=== PATIENT | female | born 1995 | race Asian ===

== ENCOUNTER 2017-08-09 22:29 | Emergency (ER) | payer OTHER ==
[2017-08-09 23:02] VITALS: BP 133/83
== END 2017-08-10 02:14 | disposition left against medical advice (07) ==
LOC: ED 22:29
DX: Z53.21 Procedure and treatment not carried out due to patient leaving prior to being seen by health care provider (principal)

== ENCOUNTER 2018-03-16 20:32 | Emergency (ER) | payer OTHER ==
[~2018-03-16] VITALS: Ht 154.9 cm; Wt 57.1 kg
[2018-03-16 20:43] VITALS: Ht 154.9 cm; Wt 57.1 kg
[2018-03-16 22:13] VITALS: BP 113/65
== END 2018-03-16 22:13 | disposition home or self-care (01) ==
LOC: ED 20:32
DX: S16.1XXA Strain of muscle, fascia and tendon at neck level, initial encounter (principal); V89.2XXA Person injured in unspecified motor-vehicle accident, traffic, initial encounter; Y93.89 Activity, other specified; Y92.89 Other specified places as the place of occurrence of the external cause; Y99.8 Other external cause status
CPT/HCPCS: J1885

== ENCOUNTER 2019-02-12 18:21 | Emergency (ER) | payer MEDICAID ==
[~2019-02-12] VITALS: Ht 154.9 cm; Wt 54.4 kg
[2019-02-12 20:54] VITALS: BP 108/63
== END 2019-02-12 20:54 | disposition home or self-care (01) ==
LOC: ED 18:21
DX: R05 Cough (principal)

== ENCOUNTER 2020-08-30 17:06 | Emergency (ER) | payer OTHER ==
[~2020-08-30] VITALS: Ht 154.9 cm; Wt 56.7 kg
[2020-08-30 17:20] VITALS: BP 110/63; Ht 154.9 cm; Wt 56.7 kg
== END 2020-08-30 17:30 | disposition left against medical advice (07) ==
LOC: ED 17:06
DX: Z53.21 Procedure and treatment not carried out due to patient leaving prior to being seen by health care provider (principal)